=== PATIENT | female | born 1990 | race Caucasian/White ===

== ENCOUNTER 2020-03-31 21:36 | Emergency (ER) | payer OTHER ==
[~2020-03-31] VITALS: Ht 167.6 cm; Wt 72.6 kg
[2020-03-31 22:00] LABS: URINE BILIRUBIN NEGATIVE (Negative); URINE BLOOD NEGATIVE (Negative); URINE CLARITY SL CLOUDY; URINE COLOR YELLOW; URINE GLUCOSE-RANDOM* NEGATIVE (Negative); URINE KETONES NEGATIVE (Negative); URINE NITRITE-REFLEX NEGATIVE (Negative); URINE PROTEIN (DIPSTICK) NEGATIVE (Negative); URINE UROBILINOGEN 0.2 E.U./dl (0.2-1.0)
[2020-03-31 22:01] LABS: URINE LEUKOCYTES-REFLEX 2+ (Negative)
[2020-03-31 22:11] LABS: CASTS None Seen /LPF (None Seen); CRYSTALS None Seen /LPF (None Seen); SQUAMOUS 4-10 Moderate /LPF (0-3)
[2020-03-31 22:12] LABS: URINE RBC None Seen /HPF (0-2)
[2020-03-31 22:13] LABS: BACTERIA-REFLEX 1-9 Few /HPF (None Seen); URINE WBC-REFLEX 6-15 Few /HPF (0-5)
[2020-03-31] MEDS ORDERED: bupropion PO (22:32)
[2020-03-31] MEDS ORDERED: SUPER THERAVIT1 EACH PO (22:32)
[2020-03-31 22:36] LABS: BASOPHILS 0.6 % (0.0-2.0); EOSINOPHILS 10.2 % (0.0-3.0); HEMATOCRIT 42.1 % (37.0-47.0); MCH 33.3 pg (26.0-34.0); MCHC 35.6 g/dL (28.0-37.0); MCV 93.5 fL (80.0-100.0); MONOCYTES 3.9 % (1.0-8.0); PLATELET COUNT 331 thou/uL (150-400); POLYS 43.3 % (36.0-66.0); RDW 12.2 % (10.5-14.5); WBC 9.3 thou/uL (4.0-11.0)
[2020-03-31 22:45] LABS: CREATININE 0.8 mg/dL (0.6-1.0); POTASSIUM 3.6 mmol/L (3.5-5.1)
[2020-03-31 22:51] LABS: ALBUMIN 3.9 g/dL (3.4-5.0); TOTAL BILIRUBIN 0.2 mg/dL (0.2-1.0)
[2020-04-01] MEDS ORDERED: PRILOSEC OTC20 MG PO (00:59)
[2020-04-01] MEDS ORDERED: TRAMADOL 50 MG50 MG PO (01:00)
[2020-04-01 01:05] VITALS: BP 127/77
== END 2020-04-01 01:05 | disposition home or self-care (01) ==
LOC: ER 21:36
PROVIDERS: Emergency Medicine
DX: R10.13 Epigastric pain (principal); R63.0 Anorexia; Z90.89 Acquired absence of other organs; Z98.890 Other specified postprocedural states; Z79.899 Other long term (current) drug therapy; Z88.6 Allergy status to analgesic agent